=== PATIENT | male | born 1965 | race Caucasian/White ===

== ENCOUNTER 2017-07-08 21:38 | Inpatient (IN) | payer OTHER ==
[2017-07-08 21:58] VITALS: BMI 18.5
--- NOTE | 2017-07-08 23:15 | HP ---
CIWA Score - CIWA Score Nausea/Vomitin-Mild Nausea/No Vomiting Muscle Tremors: 4-Moderate,w/Arms Extend Anxiety: 4-Mod. Anxious/Guarded Agitation: 4-Moderately Restless Paroxysmal Sweats: 1-Minimal Palms Moist Orientation: 0-Oriented Tacttile Disturbances: 0-None Auditory Disturbances: 0-None Visual Disturbances: 0-None Headache: 1-Very Mild CIWA-Ar Total Score: 15 Admission ROS S - HPI Chief Complaint: withdrawal sx Allergies/Adverse Reactions: Allergies Allergy/AdvReac Type Severity Reaction Status Date / Time Fish Containing Products Allergy Rash Verified 08/07/16 12:23 No Known Drug Allergies Allergy Verified 08/07/16 12:23 History of Present Illness: 52 years old male with long history of alcohol nicotine dependence has hiv hepatitis c and depression is admitted to detox Exam Limitations: No Limitations - Ebola screening Have you traveled outside of the country in the last 21 days: No (N) Have you had contact with anyone from an Ebola affected area: No Have you been sick,other than usual withdrawal symptoms: No Do you have a fever: No - Review of Systems Constitutional: Loss of Appetite, Changes in sleep, Unintentional Wgt. Loss, Unexplained wgt Loss EENT: reports: Blurred Vision (eye glasses), Hearing Loss (left ear x 20+ years) , Other (blind right eye) Respiratory: reports: SOB with Exertion Cardiac: reports: No Symptoms Reported GI: reports: Nausea, Poor Appetite, Poor Fluid Intake, Abdominal cramping : reports: No Symptoms Reported Musculoskeletal: reports: Back Pain, Joint Pain, Muscle Pain, Neck Pain Integumentary: reports: No Symptoms Reported Neuro: reports: Seizure (2014 alcohol withdrawal related), Tremors Endocrine: reports: No Symptoms Reported Hematology: reports: No Symptoms Reported Psychiatric: reports: Judgement Intact, Orientated x3, Anxious, Depressed Other Systems: Reviewed and Negative Patient History - Patient Medical History Hx Anemia: No Hx Asthma: Yes Hx Chronic Obstructive Pulmonary Disease (COPD): Yes Hx Cancer: No Hx Cardiac Disorders: No Hx Congestive Heart Failure: No Hx Hypertension: No Hx Hypercholesterolemia: No Hx Pacemaker: No HX Cerebrovascular Accident: No Hx Seizures: Yes (05/2016) Hx Dementia: No Hx Diabetes: No Hx Gastrointestinal Disorders: No Hx Liver Disease: Yes Hx Genitourinary Disorders: No Hx Sexually Transmitted Disorders: No Hx Renal Disease (ESRD): No Hx Thyroid Disease: No Hx Human Immunodeficiency Virus (HIV): Yes (SINCE 1998;off meds since (06/24/15) ; PCP PNEUMONIA X 3) Hx Hepatitis C: Yes (no treatment) Hx Depression: Yes Hx Suicide Attempt: No Hx Bipolar Disorder: No (ANXIETY AND PANIC ATTACKS) Hx Schizophrenia: No - Patient Surgical History Past Surgical History: Yes Hx Neurologic Surgery: No Hx Cataract Extraction: No Hx Cardiac Surgery: No Hx Lung Surgery: No Hx Breast Surgery: No Hx Breast Biopsy: No Hx Abdominal Surgery: No Hx Appendectomy: No Hx Cholecystectomy: No Hx Genitourinary Surgery: No Hx Orthopedic Surgery: Yes (SX DUE TO FX RIGHT LEG) Other Surgical History: TESTICULAR SX A BABY--EXTRA TESTICULE. Anesthesia Reaction: No - PPD History Previous Implant?: Yes Documented Results: Negative w/o proof Implanted On Prior [facility] Admission?: Yes Date: 03/15/16 Results: 0 mm PPD to be Administered?: Yes - Smoking Cessation Smoking history: Current every day smoker Have you smoked in the past 12 months: Yes Aproximately how many cigarettes per day: 20 Cigars Per Day: 0 Hx Chewing Tobacco Use: No Initiated information on smoking cessation: Yes 'Breaking Loose' booklet given: 07/08/17 - Substance & Tx. History Hx Alcohol Use: Yes Hx Substance Use: No Substance Use Type: Alcohol Hx Substance Use Treatment: Yes (2015 ) - Substances Abused Alcohol Route: Oral Frequency: Daily (24ozx3) Amount used: [id number]+ pint volka Age of first use: 14 Date of Last Use: 07/08/17 Family Disease History - Family Disease History Family Disease History: Heart Disease: Mother (HTN; [place] ), Other: Father ( - addict), Mother Admission Physical Exam S - Vital Signs Vital Signs: Vital Signs - 24 hr 07/08/17 21:56 Temperature 96.0 F L Pulse Rate 80 Respiratory 18 Rate Blood Pressure 105/80 - Physical General Appearance: Yes: Appropriately Dressed, Mild Distress, Alcohol on Breath , Thin, Tremorous, Irritable, Sweating, Anxious HEENTM: Yes: Hearing grossly Normal, Normal ENT Inspection, Normocephalic, Normal Voice Respiratory: Yes: Chest Non-Tender, Normal Breath Sounds, No Respiratory Distress, No Accessory Muscle Use, Rhonchi, Wheezing, Hyperresonant Neck: Yes: Supple, Trachea in good position Breast: Yes: Breasts Symetrical Cardiology: Yes: Regular Rhythm, Regular Rate, S1, S2 Abdominal: Yes: Non Tender, Soft, Increased Bowel Sounds Genitourinary: Yes: Within Normal Limits Back: Yes: Normal Inspection Musculoskeletal: Yes: full range of Motion, Gait Steady, Back pain Extremities: Yes: Normal Inspection, Normal Range of Motion, Non-Tender, Tremors Neurological: Yes: Fully Oriented, Alert, Motor Strength 5/5, Normal Response, Depressed Affect Integumentary: Yes: Warm Lymphatic: Yes: Within Normal Limits - Diagnostic (1) Alcohol dependence with uncomplicated withdrawal Current Visit: Yes Status: Acute (2) Nicotine dependence Current Visit: Yes Status: Acute Qualifiers: Nicotine product type: cigarettes Substance use status: in withdrawal Qualified Code(s): F17.213 - Nicotine dependence, cigarettes, with withdrawal (3) Back muscle spasm Current Visit: Yes Status: Chronic (4) Blind right eye Current Visit: Yes Status: Chronic (5) Hepatitis C Current Visit: Yes Status: Chronic Qualifiers: Viral hepatitis chronicity: chronic Hepatic coma status: without hepatic coma Qualified Code(s): B18.2 - Chronic viral hepatitis C (6) Varicose veins Current Visit: Yes Status: Chronic (7) Left ear hearing loss Current Visit: Yes Status: Chronic Qualifiers: Hearing loss type: conductive Contralateral hearing status: unrestricted hearing on contralateral side Qualified Code(s): H90.12 - Conductive hearing loss, unilateral, left ear, with unrestricted hearing on the contralateral side Cleared for Admission [facility] - Detox or Rehab [facility] Level of Care: Medically Managed Detox Regimen/Protocol: Librium [facility] Breath Alcohol Content Breath Alcohol Content: 0.013 Urine Drug Screen - Results Drug Screen Negative: Yes
[2017-07-08] MEDS ORDERED: MAGNESIUM CITRATE 300 ML BOTTLE PO PRN (23:20)
[2017-07-08] MEDS ORDERED: MENTHOL/PHENOL 1 EACH UD MM PRN (23:20)
[2017-07-08] MEDS ORDERED: chlordiazePOXIDE HCL 25 MG CAPSULE PO PRN (23:20)
[2017-07-08] MEDS ORDERED: chlordiazePOXIDE HCL 25 MG CAPSULE PO ONE (23:20)
[2017-07-08] MEDS ORDERED: diphenhydrAMINE HCL 50 MG CAPSULE PO PRN (23:20)
[2017-07-08] MEDS ORDERED: ACETAMINOPHEN 325 MG TABLET (FP) PO PRN (23:20)
[2017-07-08] MEDS ORDERED: P-EPHED 60MG/TRIPROLIDI 2.5MG TABLET PO PRN (23:20)
[2017-07-08] MEDS ORDERED: MAG HYDROX/AL HYDROX/SIMETH 30 ML UNIT-DOSE CUP PO PRN (23:20)
[2017-07-08] MEDS ORDERED: guaiFENesin/D-METHORPHAN HB 10 ML UNIT-DOSE CUPS PO PRN (23:20)
[2017-07-08] MEDS ORDERED: NICOTINE POLACRILEX 4 MG GUM BC PRN (23:20)
[2017-07-08] MEDS ORDERED: MAGNESIUM HYDROX 2400MG/30ML ORAL SUSPENSION 30 ML CUP PO PRN (23:20)
[2017-07-08] MEDS ORDERED: IBUPROFEN 400 MG TABLET (FP) PO PRN (23:20)
[2017-07-08] MEDS ORDERED: hydrOXYzine PAMOATE 50 MG CAPSULE (FP) PO PRN (23:20)
[2017-07-08] MEDS ORDERED: LOPERAMIDE HCL 2 MG CAPSULE PO PRN (23:20)
[2017-07-08] MEDS ORDERED: METHOCARBAMOL 500 MG TABLET PO PRN (23:34)
[2017-07-08] MEDS ORDERED: ALBUTEROL SO4 2.5/IPRATROPIUM 0.5 INH SOL 3 ML VIAL.NEB. NEB PRN (23:36)
[2017-07-08] MEDS ORDERED: ALBUTEROL SO4 6.7 GM HFA INHALER IH PRN (23:36)
[2017-07-09] MEDS: chlordiazePOXIDE HCL 25 MG CAPSULE PO SCH ×5 (01:00→23:03)
[2017-07-09] MEDS: AMMONIUM LACTATE 12% LOTION 225 GM BOTTLE TP SCH ×3 (01:03→23:02)
[2017-07-09 10:44] LABS: ALBUMIN 3.4 g/dl (3.4-5.0); ALK PHOS 69 U/L (45-117); ANION GAP 8 (8-16); CALCIUM 8.9 mg/dL (8.5-10.1); CO2 29 mmol/L (21-32); CREATININE 0.8 mg/dL (0.7-1.3); GLUCOSE,RANDOM 84 mg/dL (74-106); SGOT/AST 109 U/L (15-37); SGPT/ALT 71 U/L (12-78); TOT PROT 7.4 g/dl (6.4-8.2)
[2017-07-09] MEDS: PRENATAL VITAMINS W/ FOLIC ACID TABLET (FP) PO SCH (10:54)
[2017-07-09] MEDS: SULFAMETHOXAZOLE/TRIMETHOPRIM 800MG/160MG D.S. TABLET PO SCH (10:54)
[2017-07-09] MEDS: LORATADINE 10 MG TABLET PO SCH (10:54)
[2017-07-09] MEDS: LIDOCAINE 5% TOPICAL PATCH TP SCH (10:55)
[2017-07-09] MEDS: NICOTINE 21 MG/24 HOURS TOPICAL PATCH TD SCH (10:55)
--- NOTE | 2017-07-09 13:04 | EKG ---
Test Reason : Blood Pressure : / mmHG Vent. Rate : 086 BPM Atrial Rate : 086 BPM P-R Int : 124 ms QRS Dur : 106 ms QT Int : 366 ms P-R-T Axes : 072 036 056 degrees QTc Int : 437 ms NORMAL SINUS RHYTHM INCOMPLETE RIGHT BUNDLE BRANCH BLOCK SEPTAL INFARCT (CITED ON OR BEFORE 09-JUL-2017) ABNORMAL ECG WHEN COMPARED WITH ECG OF 09-JUL-2017 00:19, NO SIGNIFICANT CHANGE WAS FOUND Confirmed by BRANDI PALACIOS MD ([id number]) on 07/09/2017 1:04:19 PM Referred By: Confirmed By:BRANDI PALACIOS MD
--- NOTE | 2017-07-09 13:05 | EKG ---
Test Reason : Blood Pressure : / mmHG Vent. Rate : 065 BPM Atrial Rate : 065 BPM P-R Int : 110 ms QRS Dur : 100 ms QT Int : 416 ms P-R-T Axes : -10 054 045 degrees QTc Int : 432 ms SINUS RHYTHM WITH SINUS ARRHYTHMIA WITH SHORT CT INCOMPLETE RIGHT BUNDLE BRANCH BLOCK SEPTAL INFARCT , AGE UNDETERMINED ABNORMAL ECG NO PREVIOUS ECGS AVAILABLE Confirmed by BRANDI PALACIOS MD ([id number]) on 07/09/2017 1:05:03 PM Referred By: Confirmed By:BRANDI PALACIOS MD
--- NOTE | 2017-07-09 13:44 | CONSULT ---
[facility] Psychiatric Consult - Data Date of interview: 07/09/17 Admission source: [facility] Identifying data: Readmission to [facility] for this 52 y/o male seeking detox treatment on for alcohol dependence.Patient is single without children,undomiciled,unemployed and supported on SSI benefits. Substance Abuse History: Confirmed by patient in this session. Smoking Cessation. Smoking history: Current every day smoker. Have you smoked in the past 12 months: Yes. Aproximately how many cigarettes per day: 20. Cigars Per Day: 0. Hx Chewing Tobacco Use: No. Initiated information on smoking cessation : Yes. 'Breaking Loose' booklet given: 07/08/17. - Substance & Tx. History. Hx Alcohol Use: Yes. Hx Substance Use: No. Substance Use Type: Alcohol. Hx Substance Use Treatment: Yes (2015 ). - Substances Abused. Alcohol. Route : Oral. Frequency: Daily (24ozx3). Amount used: [id number]+ pint volka. Age of first use: 14. 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 Psychiatric History: No reported history of psychiatric hospitalizations.Patient indicates that he used to self-medicate with trazodone (not prescribed but taken from an acquaintance) for insomnia.No history of psychiatric OPD care.Mr Craig denies history of suicide attempts. Physical/Sexual Abuse/Trauma History: Patient denies. Additional Comment: Drug Screen is negative. Mental Status Exam - Mental Status Exam Alert and Oriented to: Time, Place, Person Cognitive Function: Good Patient Appearance: Well Groomed Mood: Hopeful, Euthymic Affect: Appropriate, Normal Range Patient Behavior: Cooperative Speech Pattern: Clear Voice Loudness: Normal Thought Process: Intact, Goal Oriented Thought Disorder: Not Present Hallucinations: Denies Suicidal Ideation: Denies Homicidal Ideation: Denies Insight/Judgement: Poor Sleep: Poorly, Difficulty falling asleep Appetite: Good Muscle strength/Tone: Normal Gait/Station: Other (not observed;patient is lying in bed during session.) Psychiatric Findings - Problem List ([place] 1, 2,3) (1) Alcohol dependence with uncomplicated withdrawal Current Visit: Yes Status: Acute (2) Nicotine dependence Current Visit: Yes Status: Acute Qualifiers: Nicotine product type: cigarettes Substance use status: in withdrawal Qualified Code(s): F17.213 - Nicotine dependence, cigarettes, with withdrawal; F17.213 - Nicotine dependence, cigarettes, with withdrawal (3) Blind right eye Current Visit: Yes Status: Chronic (4) Hepatitis C Current Visit: Yes Status: Chronic Qualifiers: Viral hepatitis chronicity: chronic Hepatic coma status: without hepatic coma Qualified Code(s): B18.2 - Chronic viral hepatitis C; B18.2 - Chronic viral hepatitis C; B18.2 - Chronic viral hepatitis C; B18.2 - Chronic viral hepatitis C (5) Left ear hearing loss Current Visit: Yes Status: Chronic Qualifiers: Hearing loss type: conductive Contralateral hearing status: unrestricted hearing on contralateral side Qualified Code(s): H90.12 - Conductive hearing loss, unilateral, left ear, with unrestricted hearing on the contralateral side; H90.12 - Conductive hearing loss, unilateral, left ear, with unrestricted hearing on the contralateral side (6) Varicose veins Current Visit: Yes Status: Chronic (7) AIDS Current Visit: Yes Status: Chronic (8) Insomnia Current Visit: Yes Status: Acute - Initial Treatment Plan Initial Treatment Plan: Psychoeducation.Detoxification.Ambien 10 mg po hs prn for insomnia.Sleep hygiene discussed with the patient is informed of potential for parasomnias.He agrees to this plan of care.Observation.
[2017-07-09] MEDS: PATIENT'S OWN MEDICATION (NON-FORMULARY) (Emtricitabine/Tenofovir (Tdf) [Truvada 200 Mg-30 PO SCH (15:30)
[2017-07-09] MEDS: PATIENT'S OWN MEDICATION (NON-FORMULARY) (Darunavir/Cobicistat [Prezcobix 800 Mg-150 Mg Ta PO SCH (15:30)
--- NOTE | 2017-07-09 16:33 | PN ---
S CIWA - CIWA Score Nausea/Vomitin Muscle Tremors: 4-Moderate,w/Arms Extend Anxiety: 3 Agitation: 1-Slight > Activity Paroxysmal Sweats: No Perspiration Orientation: 0-Oriented Tacttile Disturbances: 2-Mild Itch/Numbness/Burn Auditory Disturbances: 2-Mild Harshness/Frighten Visual Disturbances: 1-Very Mild Sensitivity Headache: 0-None Present CIWA-Ar Total Score: 16 BHS Progress Note (SOAP) Subjective: Nausea, Tremors, Stomach Cramping, Interrupted sleep, Fatigue, Body Aches. Objective: PT. A & O X 3. NO ACUTE DISTRESS. 07/09/17 16:30 Vital Signs Temperature 98.4 F 07/09/17 15:20 Pulse Rate 76 07/09/17 15:20 Respiratory Rate 18 07/09/17 15:20 Blood Pressure 110/74 07/09/17 15:20 O2 Sat by Pulse Oximetry (%) Laboratory Tests 07/09/17 07/09/17 08:00 08:00 Sodium 139 Potassium 4.0 Chloride 102 Carbon Dioxide 29 Anion Gap 8 BUN 7 D Creatinine 0.8 D Creat Clearance w eGFR > 60 Random Glucose 84 D Calcium 8.9 Total Bilirubin 1.0 D AST 109 H D ALT 71 D Alkaline Phosphatase 69 Total Protein 7.4 Albumin 3.4 RPR Titer Nonreactive LABS NOTED. CBC AND UA RESULTS PENDING. 07/09/17 16:31 Assessment: 07/09/17 16:32 WITHDRAWAL SYMPTOMS. Plan: CONTINUE DETOX. REPEAT AST ON 07/11/2017.
[2017-07-09 20:11] LABS: MCH 34.4 pg (25.7-33.7); MCHC 33.9 g/dl (32.0-35.9); MEAN CELL VOLUME 101.6 fl (80-96); MEAN PLT VOLUME 10.3 fl (7.5-11.1); PLATELET COUNT 128 K/MM3 (134-434); RDW 12.7 % (11.9-15.9); WHITE BLOOD COUNT 2.4 K/mm3 (4.0-10.0)
[2017-07-09] MEDS: ZOLPIDEM TARTRATE 5 MG TABLET PO PRN (23:04)
[2017-07-09] MEDS: LIDOCAINE PATCH REMOVAL MC SCH (23:06)
[2017-07-09] MEDS: THIAMINE HCL 100 MG TABLET (FP) PO SCH (23:30)
[2017-07-10] MEDS: chlordiazePOXIDE HCL 25 MG CAPSULE PO SCH ×3 (05:59→17:13)
[2017-07-10] MEDS: PATIENT'S OWN MEDICATION (NON-FORMULARY) (Emtricitabine/Tenofovir (Tdf) [Truvada 200 Mg-30 PO SCH (10:36)
[2017-07-10] MEDS: LORATADINE 10 MG TABLET PO SCH (10:36)
[2017-07-10] MEDS: AMMONIUM LACTATE 12% LOTION 225 GM BOTTLE TP SCH ×2 (10:36→22:37)
[2017-07-10] MEDS: LIDOCAINE 5% TOPICAL PATCH TP SCH (10:36)
[2017-07-10] MEDS: PATIENT'S OWN MEDICATION (NON-FORMULARY) (Darunavir/Cobicistat [Prezcobix 800 Mg-150 Mg Ta PO SCH (10:36)
[2017-07-10] MEDS: SULFAMETHOXAZOLE/TRIMETHOPRIM 800MG/160MG D.S. TABLET PO SCH (10:36)
[2017-07-10] MEDS: PRENATAL VITAMINS W/ FOLIC ACID TABLET (FP) PO SCH (10:36)
[2017-07-10] MEDS: NICOTINE 21 MG/24 HOURS TOPICAL PATCH TD SCH (10:36)
--- NOTE | 2017-07-10 16:28 | PN ---
[facility] CIWA - CIWA Score Nausea/Vomitin Muscle Tremors: 2 Anxiety: 3 Agitation: 4-Moderately Restless Paroxysmal Sweats: 3 Orientation: 0-Oriented Tacttile Disturbances: 1-Very Mild Itch/Numbness Auditory Disturbances: 0-None Visual Disturbances: 0-None Headache: 0-None Present CIWA-Ar Total Score: 16 BHS Progress Note (SOAP) Subjective: Body aches, sweating, anxious, restless, poor appetite (requesting ensure TID) Objective: 07/10/17 16:25 Last Vital Signs Temp Pulse Resp BP Pulse Ox 96.1 F L 67 18 96/51 07/10/17 09:57 07/10/17 09:57 07/10/17 09:57 07/10/17 09:57 B/P 96/51 noted Laboratory Tests 07/09/17 07/09/17 07/09/17 08:00 08:00 08:00 WBC 2.4 L D RBC 4.57 Hgb 15.7 Hct 46.4 MCV 101.6 H MCH 34.4 H MCHC 33.9 RDW 12.7 Plt Count 128 L MPV 10.3 Sodium 139 Potassium 4.0 Chloride 102 Carbon Dioxide 29 Anion Gap 8 BUN 7 D Creatinine 0.8 D Creat Clearance w eGFR > 60 Random Glucose 84 D Calcium 8.9 Total Bilirubin 1.0 D AST 109 H D ALT 71 D Alkaline Phosphatase 69 Total Protein 7.4 Albumin 3.4 RPR Titer Nonreactive Labs noted Assessment: 07/10/17 16:27 Withdrawal symptoms Noted with hypotension Plan: Continue detox Hypotension: Encouraged to drink lots of water, ensure TID due to poor appetite , water pitcher ordered, continue to monitor
[2017-07-10] MEDS: THIAMINE HCL 100 MG TABLET (FP) PO SCH (22:36)
[2017-07-10] MEDS: chlordiazePOXIDE 5 MG CAPSULE PO SCH (22:36)
[2017-07-10] MEDS: ZOLPIDEM TARTRATE 5 MG TABLET PO PRN (22:36)
[2017-07-10] MEDS: LIDOCAINE PATCH REMOVAL MC SCH (22:37)
[2017-07-11] MEDS: chlordiazePOXIDE 5 MG CAPSULE PO SCH ×3 (05:57→17:00)
[2017-07-11 09:06] VITALS: BP 98/50; PULSE 68; TEMP 96.6
--- NOTE | 2017-07-11 09:27 | PN ---
S Progress Note (SOAP) Subjective: nausea, sweats, interrupted sleep, anxiety, tremors Objective: 07/11/17 09:25 Vital Signs - 24 hr 07/10/17 07/10/17 07/10/17 09:57 17:29 22:09 Temperature 96.1 F L 96.3 F L 96.8 F L Pulse Rate 67 93 H 103 H Respiratory 18 16 18 Rate Blood Pressure 96/51 105/61 120/83 07/11/17 07/11/17 07/11/17 00:30 03:30 06:23 Temperature 98.0 F Pulse Rate 82 Respiratory 18 18 16 Rate Blood Pressure 111/65 07/11/17 09:05 Temperature 96.6 F L Pulse Rate 68 Respiratory 16 Rate Blood Pressure 98/50 Laboratory Tests 07/09/17 07/09/17 07/09/17 08:00 08:00 08:00 WBC 2.4 L D RBC 4.57 Hgb 15.7 Hct 46.4 MCV 101.6 H MCH 34.4 H MCHC 33.9 RDW 12.7 Plt Count 128 L MPV 10.3 Sodium 139 Potassium 4.0 Chloride 102 Carbon Dioxide 29 Anion Gap 8 BUN 7 D Creatinine 0.8 D Creat Clearance w eGFR > 60 Random Glucose 84 D Calcium 8.9 Total Bilirubin 1.0 D AST 109 H D ALT 71 D Alkaline Phosphatase 69 Total Protein 7.4 Albumin 3.4 RPR Titer Nonreactive macrosytosis, elevated, lfts, hypoalbuminemia Assessment: 07/11/17 09:25 withdrawal sx, malnutirtion/liver disease 2/2 substance use? cachexia Plan: cont detox, fluids, ensure, symptomatic relief of withdrawal, encourage ambulation, dietary counseling
[2017-07-11 10:27] LABS: ALBUMIN 3.2 g/dl (3.4-5.0); BILIRUBIN,DIRECT 0.4 mg/dL (0.0-0.2); BILIRUBIN,TOTAL 0.8 mg/dL (0.2-1.0); TOT PROT 7.4 g/dl (6.4-8.2)
[2017-07-11] MEDS: PATIENT'S OWN MEDICATION (NON-FORMULARY) (Emtricitabine/Tenofovir (Tdf) [Truvada 200 Mg-30 PO SCH (10:27)
[2017-07-11] MEDS: AMMONIUM LACTATE 12% LOTION 225 GM BOTTLE TP SCH (10:27)
[2017-07-11] MEDS: LORATADINE 10 MG TABLET PO SCH (10:27)
[2017-07-11] MEDS: NICOTINE 21 MG/24 HOURS TOPICAL PATCH TD SCH (10:27)
[2017-07-11] MEDS: SULFAMETHOXAZOLE/TRIMETHOPRIM 800MG/160MG D.S. TABLET PO SCH (10:27)
[2017-07-11] MEDS: PATIENT'S OWN MEDICATION (NON-FORMULARY) (Darunavir/Cobicistat [Prezcobix 800 Mg-150 Mg Ta PO SCH (10:27)
[2017-07-11] MEDS: LIDOCAINE 5% TOPICAL PATCH TP SCH (10:27)
[2017-07-11] MEDS: PRENATAL VITAMINS W/ FOLIC ACID TABLET (FP) PO SCH (10:27)
[2017-07-11] MEDS ORDERED: chlordiazePOXIDE HCL 10 MG CAPSULE PO SCH (23:00)
--- NOTE | 2017-07-12 16:22 | DS ---
[facility] Detox Discharge Summary Admission Date: 07/08/17 Discharge Date: 07/11/17 - History Present History: Alcohol Dependence Additional Comments: received nurse call that the patient wants to leave the facility refuses to wait face to face with the provider to discuss addiction recovery treatment strategies Pertinent Past History: withdrawal sx Laboratory Last Values WBC 2.4 K/mm3 (4.0-10.0) L D 07/09/17 08:00 RBC 4.57 M/mm3 (4.00-5.60) 07/09/17 08:00 Hgb 15.7 GM/dL (11.7-16.9) 07/09/17 08:00 Hct 46.4 % (35.4-49) 07/09/17 08:00 MCV 101.6 fl (80-96) H 07/09/17 08:00 MCH 34.4 pg (25.7-33.7) H 07/09/17 08:00 MCHC 33.9 g/dl (32.0-35.9) 07/09/17 08:00 RDW 12.7 % (11.9-15.9) 07/09/17 08:00 Plt Count 128 K/MM3 (134-434) L 07/09/17 08:00 MPV 10.3 fl (7.5-11.1) 07/09/17 08:00 Sodium 139 mmol/L (136-145) 07/09/17 08:00 Potassium 4.0 mmol/L (3.5-5.1) 07/09/17 08:00 Chloride 102 mmol/L (98-107) 07/09/17 08:00 Carbon Dioxide 29 mmol/L (21-32) 07/09/17 08:00 Anion Gap 8 (8-16) 07/09/17 08:00 BUN 7 mg/dL (7-18) D 07/09/17 08:00 Creatinine 0.8 mg/dL (0.7-1.3) D 07/09/17 08:00 Creat Clearance w eGFR > 60 (>60) 07/09/17 08:00 Random Glucose 84 mg/dL (74-106) D 07/09/17 08:00 Calcium 8.9 mg/dL (8.5-10.1) 07/09/17 08:00 Total Bilirubin 0.8 mg/dL (0.2-1.0) 07/11/17 08:00 Direct Bilirubin 0.4 mg/dL (0.0-0.2) H D 07/11/17 08:00 AST 74 U/L (15-37) H D 07/11/17 08:00 ALT 60 U/L (12-78) 07/11/17 08:00 Alkaline Phosphatase 69 U/L (45-117) 07/11/17 08:00 Total Protein 7.4 g/dl (6.4-8.2) 07/11/17 08:00 Albumin 3.2 g/dl (3.4-5.0) L 07/11/17 08:00 RPR Titer Nonreactive (NONREACTIVE) 07/09/17 08:00 lab noted - Physical Exam Results Vital Signs: Vital Signs Temperature 96.6 F L 07/11/17 09:05 Pulse Rate 68 07/11/17 09:05 Respiratory Rate 16 07/11/17 09:05 Blood Pressure 98/50 07/11/17 09:05 O2 Sat by Pulse Oximetry (%) Pertinent Admission Physical Exam Findings: withdrawal sx Laboratory Last Values WBC 2.4 K/mm3 (4.0-10.0) L D 07/09/17 08:00 RBC 4.57 M/mm3 (4.00-5.60) 07/09/17 08:00 Hgb 15.7 GM/dL (11.7-16.9) 07/09/17 08:00 Hct 46.4 % (35.4-49) 07/09/17 08:00 MCV 101.6 fl (80-96) H 07/09/17 08:00 MCH 34.4 pg (25.7-33.7) H 07/09/17 08:00 MCHC 33.9 g/dl (32.0-35.9) 07/09/17 08:00 RDW 12.7 % (11.9-15.9) 07/09/17 08:00 Plt Count 128 K/MM3 (134-434) L 07/09/17 08:00 MPV 10.3 fl (7.5-11.1) 07/09/17 08:00 Sodium 139 mmol/L (136-145) 07/09/17 08:00 Potassium 4.0 mmol/L (3.5-5.1) 07/09/17 08:00 Chloride 102 mmol/L (98-107) 07/09/17 08:00 Carbon Dioxide 29 mmol/L (21-32) 07/09/17 08:00 Anion Gap 8 (8-16) 07/09/17 08:00 BUN 7 mg/dL (7-18) D 07/09/17 08:00 Creatinine 0.8 mg/dL (0.7-1.3) D 07/09/17 08:00 Creat Clearance w eGFR > 60 (>60) 07/09/17 08:00 Random Glucose 84 mg/dL (74-106) D 07/09/17 08:00 Calcium 8.9 mg/dL (8.5-10.1) 07/09/17 08:00 Total Bilirubin 0.8 mg/dL (0.2-1.0) 07/11/17 08:00 Direct Bilirubin 0.4 mg/dL (0.0-0.2) H D 07/11/17 08:00 AST 74 U/L (15-37) H D 07/11/17 08:00 ALT 60 U/L (12-78) 07/11/17 08:00 Alkaline Phosphatase 69 U/L (45-117) 07/11/17 08:00 Total Protein 7.4 g/dl (6.4-8.2) 07/11/17 08:00 Albumin 3.2 g/dl (3.4-5.0) L 07/11/17 08:00 RPR Titer Nonreactive (NONREACTIVE) 07/09/17 08:00 lab noted - Treatment Hospital Course: Detox Protocol Followed, Responded well - Medication Discharge Medications: Ambulatory Orders Sulfamethoxazole/Trimethoprim [Bactrim Ds -] 1 tab PO DAILY 08/07/16 Darunavir/Cobicistat [Prezcobix 800 mg-150 mg Tablet] 1 each PO DAILY 07/08/17 Emtricitabine/Tenofovir (Tdf) [Truvada 200 mg-300 mg Tablet] 1 each PO DAILY Albuterol Sulfate Inhaler - [Ventolin Hfa Inhaler -] 2 inh PO Q4H 07/09/17 - Diagnosis (1) Alcohol dependence with uncomplicated withdrawal Status: Acute (2) Nicotine dependence Status: Acute Qualifiers: Nicotine product type: cigarettes Substance use status: in withdrawal Qualified Code(s): F17.213 - Nicotine dependence, cigarettes, with withdrawal; F17.213 - Nicotine dependence, cigarettes, with withdrawal (3) Back muscle spasm Status: Chronic (4) Blind right eye Status: Chronic (5) Hepatitis C Status: Chronic Qualifiers: Viral hepatitis chronicity: chronic Hepatic coma status: without hepatic coma Qualified Code(s): B18.2 - Chronic viral hepatitis C; B18.2 - Chronic viral hepatitis C; B18.2 - Chronic viral hepatitis C; B18.2 - Chronic viral hepatitis C (6) Varicose veins Status: Chronic (7) Left ear hearing loss Status: Chronic Qualifiers: Hearing loss type: conductive Contralateral hearing status: unrestricted hearing on contralateral side Qualified Code(s): H90.12 - Conductive hearing loss, unilateral, left ear, with unrestricted hearing on the contralateral side; H90.12 - Conductive hearing loss, unilateral, left ear, with unrestricted hearing on the contralateral side - AMA Did Patient Leave Against Medical Advice: Yes
== END 2017-07-11 16:54 | disposition left against medical advice (07) | DRG 770 ==
LOC: YASAS 21:38 → Y3N 23:16
PROVIDERS: ADMIT Internal Medicine; ATTEND Internal Medicine
PROC: HZ2ZZZZ Detoxification Services for Substance Abuse Treatment (ICD-10-PCS; principal; 2017-07-08)
DX: F10.230 Alcohol dependence with withdrawal, uncomplicated (principal); F17.213 Nicotine dependence, cigarettes, with withdrawal; H54.41 Blindness, right eye, normal vision left eye; B18.2 Chronic viral hepatitis C; B20 Human immunodeficiency virus [HIV] disease; H90.12 Conductive hearing loss, unilateral, left ear, with unrestricted hearing on the contralateral side; E46 Unspecified protein-calorie malnutrition; Z68.1 Body mass index [BMI] 19.9 or less, adult; J44.9 Chronic obstructive pulmonary disease, unspecified; K76.9 Liver disease, unspecified; R64 Cachexia; D75.81 Myelofibrosis; R94.5 Abnormal results of liver function studies; E88.09 Other disorders of plasma-protein metabolism, not elsewhere classified; I95.9 Hypotension, unspecified; I83.90 Asymptomatic varicose veins of unspecified lower extremity; G47.00 Insomnia, unspecified; L40.9 Psoriasis, unspecified; M62.830 Muscle spasm of back; Z91.013 Allergy to seafood; Z86.69 Personal history of other diseases of the nervous system and sense organs
CPT/HCPCS: 36415; 80053; 80076; 85027; 86593; 93005; 93010

== ENCOUNTER 2021-03-06 15:13 | Inpatient (IN) | payer OTHER ==
[2021-03-06 18:01] VITALS: BMI 19.1
[2021-03-06] MEDS ORDERED: METHOCARBAMOL 500 MG TABLET PO PRN (20:08)
[2021-03-06] MEDS ORDERED: NICOTINE POLACRILEX 2 MG GUM BUC PRN (20:08)
[2021-03-06] MEDS ORDERED: ACETAMINOPHEN 325 MG TABLET (FP) PO PRN ×2 (20:08)
[2021-03-06] MEDS ORDERED: ONDANSETRON *ODT* 4 MG TABLET SL PRN (20:08)
[2021-03-06] MEDS ORDERED: MENTHOL/PHENOL 1 EACH UD MM PRN (20:08)
[2021-03-06] MEDS ORDERED: MAGNESIUM HYDROX 2400MG/30ML ORAL SUSPENSION 30 ML CUP PO PRN (20:08)
[2021-03-06] MEDS ORDERED: BISMUTH SUBSALICYLATE 524 MG/30 ML PO PRN (20:08)
[2021-03-06] MEDS ORDERED: MAG HYDROX/AL HYDROX/SIMETH 30 ML UNIT-DOSE CUP PO PRN (20:08)
[2021-03-06] MEDS ORDERED: MAGNESIUM CITRATE 300 ML BOTTLE PO PRN (20:08)
[2021-03-06] MEDS ORDERED: IBUPROFEN 400 MG TABLET (FP) PO PRN (20:08)
[2021-03-06] MEDS ORDERED: diazePAM 5 MG TABLET PO PRN (20:10)
[2021-03-06] MEDS ORDERED: LORazepam 1 MG TABLET PO PRN (20:14)
[2021-03-06] MEDS ORDERED: diazePAM 5 MG TABLET PO SCH (23:00)
[2021-03-06] MEDS: MELATONIN 5 MG TABLETS PO SCH (23:21)
[2021-03-06] MEDS: LORazepam 2 MG TABLET PO SCH (23:21)
[2021-03-06] MEDS: THIAMINE HCL 100 MG TABLET (FP) PO SCH (23:22)
[2021-03-07] MEDS: LORazepam 2 MG TABLET PO SCH ×4 (08:34→22:39)
[2021-03-07 10:20] LABS: HEMATOCRIT 43.4 % (35.4-49); HEMOGLOBIN 14.9 GM/dL (11.7-16.9); MCHC 34.4 g/dl (32.0-35.9); MEAN CELL VOLUME 101.8 fl (80-96); MEAN PLT VOLUME 10.3 fl (7.5-11.1); PLATELET COUNT 102 K/MM3 (134-434); RBC 4.27 M/mm3 (4.00-5.60); RDW 13.3 % (11.9-15.9); WHITE BLOOD COUNT 2.7 K/mm3 (4.0-10.0)
[2021-03-07 10:30] LABS: CALCIUM 8.3 mg/dL (8.5-10.1)
[2021-03-07 10:31] LABS: BLOOD UREA NITROGEN 6.9 mg/dL (7-18)
[2021-03-07 10:34] LABS: CREATININE 0.8 mg/dL (0.55-1.3)
[2021-03-07 10:35] LABS: BILIRUBIN,TOTAL 0.6 mg/dL (0.2-1)
[2021-03-07] MEDS: PRENATAL VITAMINS W/ FOLIC ACID TABLET (FP) PO SCH (11:00)
[2021-03-07] MEDS: NICOTINE 14 MG/24 HOURS TOPICAL PATCH TD SCH (11:00)
[2021-03-07] MEDS ORDERED: valACYclovir HCL 500 MG TABLET (FP) PO SCH (22:00)
[2021-03-07] MEDS: valACYclovir HCL 500 MG TABLET (FP) PO SCH (22:38)
[2021-03-07] MEDS: THIAMINE HCL 100 MG TABLET (FP) PO SCH (22:39)
[2021-03-07] MEDS: MELATONIN 5 MG TABLETS PO SCH (22:39)
[2021-03-08] MEDS ORDERED: diazePAM 5 MG TABLET PO SCH (06:00)
[2021-03-08] MEDS: valACYclovir HCL 500 MG TABLET (FP) PO SCH ×3 (07:00→22:54)
[2021-03-08] MEDS: LORazepam 1 MG TABLET PO SCH ×5 (07:00→22:54)
[2021-03-08] MEDS ORDERED: DARUNAVIR 800 MG/COBICISTAT 150MG TABLET PO SCH (10:00)
[2021-03-08] MEDS ORDERED: EMTRICITABINE 200MG/TENOFOVIR 300MG PO SCH (10:00)
[2021-03-08] MEDS: EMTRICITABINE 200MG/TENOFOVIR 300MG PO SCH ×2 (11:14→11:23)
[2021-03-08] MEDS: SULFAMETHOXAZOLE/TRIMETHOPRIM 800MG/160MG D.S. TABLET PO SCH ×2 (11:14→11:24)
[2021-03-08] MEDS: DARUNAVIR 800 MG/COBICISTAT 150MG TABLET PO SCH ×2 (11:14→11:23)
[2021-03-08] MEDS: PRENATAL VITAMINS W/ FOLIC ACID TABLET (FP) PO SCH ×2 (11:14→11:23)
[2021-03-08] MEDS: NICOTINE 14 MG/24 HOURS TOPICAL PATCH TD SCH (11:15)
[2021-03-08] MEDS: MELATONIN 5 MG TABLETS PO SCH (22:54)
[2021-03-08] MEDS: THIAMINE HCL 100 MG TABLET (FP) PO SCH (22:54)
[2021-03-09] MEDS ORDERED: LORazepam 0.5 MG TABLET PO PRN
[2021-03-09] MEDS ORDERED: diazePAM 5 MG TABLET PO SCH (06:00)
[2021-03-09] MEDS: valACYclovir HCL 500 MG TABLET (FP) PO SCH ×2 (07:09→13:02)
[2021-03-09] MEDS: LORazepam 0.5 MG TABLET PO SCH ×2 (07:09→11:03)
[2021-03-09] MEDS: NICOTINE 14 MG/24 HOURS TOPICAL PATCH TD SCH (10:59)
[2021-03-09] MEDS: SULFAMETHOXAZOLE/TRIMETHOPRIM 800MG/160MG D.S. TABLET PO SCH (11:00)
[2021-03-09] MEDS: PRENATAL VITAMINS W/ FOLIC ACID TABLET (FP) PO SCH (11:00)
[2021-03-09] MEDS: EMTRICITABINE 200MG/TENOFOVIR 300MG PO SCH (11:01)
[2021-03-09] MEDS: DARUNAVIR 800 MG/COBICISTAT 150MG TABLET PO SCH (11:02)
[2021-03-09 13:30] VITALS: BP 111/78; PULSE 91; TEMP 97.1
[2021-03-10] MEDS ORDERED: LORazepam 0.5 MG TABLET PO ONE (05:00)
[2021-03-10] MEDS ORDERED: diazePAM 5 MG TABLET PO ONE (06:00)
== END 2021-03-09 14:02 | disposition home or self-care (01) | DRG 775 ==
LOC: YASAS 15:13 → Y3N 20:22
PROVIDERS: ADMIT Allergy & Immunology; ATTEND Allergy & Immunology
PROC: HZ2ZZZZ Detoxification Services for Substance Abuse Treatment (ICD-10-PCS; principal; 2021-03-06)
DX: F10.230 Alcohol dependence with withdrawal, uncomplicated (principal); F17.210 Nicotine dependence, cigarettes, uncomplicated; F41.0 Panic disorder [episodic paroxysmal anxiety]; F41.8 Other specified anxiety disorders; F32.9 Major depressive disorder, single episode, unspecified; B20 Human immunodeficiency virus [HIV] disease; D72.819 Decreased white blood cell count, unspecified; D69.6 Thrombocytopenia, unspecified; H91.92 Unspecified hearing loss, left ear; H54.61 Unqualified visual loss, right eye, normal vision left eye; G40.89 Other seizures; I83.93 Asymptomatic varicose veins of bilateral lower extremities; J44.9 Chronic obstructive pulmonary disease, unspecified; J45.909 Unspecified asthma, uncomplicated; B18.2 Chronic viral hepatitis C; R74.01 Elevation of levels of liver transaminase levels; Z87.438 Personal history of other diseases of male genital organs; Z56.0 Unemployment, unspecified; Z59.0 Homelessness
CPT/HCPCS: 36415; 80053; 85027; 86780; 93005; 93010; C9803; U0003; U0005